=== PATIENT | female | born 1980 | race Caucasian/White ===

== ENCOUNTER → 2018-02-14 | Outpatient (CLI) | payer OTHER ==
[2017-03-25 06:50] VITALS: BMI 44.0
[~2018-02-14] MED LIST: ACE3 PO; AUG875 PO; CEPH250S35 PO; IBU600 PO; IBUP800T37 PO; LOR5/325 PO; MET10 PO; OXYC-865 PO; PREN-127 PO
[2018-02-14 12:44] LABS: PLATELET COUNT, AUTOMATED 238 K/uL (150-450)
== END ==
LOC: LAB 11:03
PROVIDERS: ATTEND Obstetrics & Gynecology
DX: Z34.91 Encounter for supervision of normal pregnancy, unspecified, first trimester (principal)
CPT/HCPCS: 36415; 81001; 84702; 85025; 86592; 86703; 86762; 86787; 86850; 86900; 86901; 87088; 87340

== ENCOUNTER → 2018-02-16 | Outpatient (CLI) | payer OTHER ==
[2017-03-25 06:50] VITALS: BMI 44.0
== END ==
LOC: LAB 10:57
PROVIDERS: ATTEND Obstetrics & Gynecology
DX: Z34.91 Encounter for supervision of normal pregnancy, unspecified, first trimester (principal)
CPT/HCPCS: 36415; 84702

== ENCOUNTER → 2018-05-02 | Outpatient (CLI) | payer OTHER ==
[2017-03-25 06:50] VITALS: BMI 44.0
--- NOTE | 2018-05-03 00:36 | RADIOLOGY IMAGING REPORT ---
[place]AC[place] [facility] [place] NAME: Tammy Roldan : 1980 MR: [id number] V: [id number] EXAM DATE: ORDERING PHYSICIAN: FAHAD PLATA TECHNOLOGIST: Location: [facility] Patient: Tammy Roldan : 1980 Visit/Account:[id number] Date of Sevice: 05/02/2018 [facility] OB ANATOMICAL SURVEY HISTORY: Screening. COMPARISON STUDIES: None. FINDINGS: Intrauterine gestations: One. presentation: Variable. heart rate: Regular at 136 bpm. Amniotic fluid index: 19.0 cm. Largest amniotic fluid pocket 6.7 cm. Placenta: Fundal and posterior without previa. Placental cord insertion is normal. Uterus: Gravid, otherwise normal. Maternal adnexa: Unremarkable. Cervix: 3 cm in length. There is questionable funneling of the upper cervix (images 73 through 80). Gestational Parameters: BPD: 4.6 cm 20 weeks/ 0 days HC: 17.6 cm 20 weeks/ 1 days AC: 15.2 cm 20 weeks/ 3 days FL: 3.0 cm 19 weeks/ 3 days Average ultrasound age (AUA): 20 weeks 0 days Estimated gestational age by LMP of 12/13/2017: 20 weeks 0 days, corresponding to MADAI 09/19/2017. Estimated weight (EFW): 321 grams +/- 47 grams EFW: 41 th percentile based on LMP Anatomic Survey: Intracranial structures, 4-chamber heart, right ventricular outflow tract, aortic arch, stomach, kidn eys, urinary bladder, spine, 3-vessel cord and cord insertion are unremarkable. Two upper and two low er extremities visualized. Normal profile view and normal nose and lips view. gender appears ma le. IMPRESSION: 1. Single live intrauterine gestation; estimated ultrasound age 20 weeks 0 days, corresponding to MADAI 09/19/2017, concordant with the LMP. 2. Normal anatomic survey. 3. Cervix is shortened, measuring 3 cm with questionable funneling of the upper cervix. Report Dictated By: Dayna Lewis at 05/03/2018 12:16 AM Report E-Signed By: Dayna Lewis at 05/03/2018 12:31 AM [id number]
== END ==
LOC: US 10:59
PROVIDERS: ATTEND Obstetrics & Gynecology
DX: Z34.82 Encounter for supervision of other normal pregnancy, second trimester (principal); Z3A.20 20 weeks gestation of pregnancy

== ENCOUNTER → 2018-06-28 | Outpatient (CLI) | payer OTHER ==
[2017-03-25 06:50] VITALS: BMI 44.0
[~2018-06-28] MED LIST changes: +DIPH0.5D12 IM; +PYRI25TA18 PO; +SENN-187 PO
[2018-06-28 12:40] LABS: PLATELET COUNT, AUTOMATED 215 K/uL (150-450)
== END ==
LOC: LAB 11:41
PROVIDERS: ATTEND Obstetrics & Gynecology
DX: O09.529 Supervision of elderly multigravida, unspecified trimester (principal); Z64.1 Problems related to multiparity
CPT/HCPCS: 36415; 82950; 85025

== ENCOUNTER → 2018-07-01 | Outpatient (CLI) | payer OTHER ==
[2017-03-25 06:50] VITALS: BMI 44.0
== END ==
LOC: LAB 08:02
PROVIDERS: ATTEND Obstetrics & Gynecology
DX: O99.810 Abnormal glucose complicating pregnancy (principal)
CPT/HCPCS: 36415; 82951; 82952

== ENCOUNTER → 2018-08-16 | Outpatient (CLI) | payer OTHER ==
[2017-03-25 06:50] VITALS: BMI 44.0
== END ==
LOC: LAB 15:46
PROVIDERS: ATTEND Obstetrics & Gynecology
DX: Z36.85 Encounter for antenatal screening for Streptococcus B (principal)
CPT/HCPCS: 87081

== ENCOUNTER → 2018-08-25 | Outpatient (CLI) | payer OTHER ==
[2017-03-25 06:50] VITALS: BMI 44.0
[~2018-08-25] MED LIST changes: +ACET-1966 PO; +BET6I IM ONLY; +CALC-515 PO; -DIPH0.5D12 IM; +DIPH0.5S2 IM
== END ==
LOC: LAB 11:49
PROVIDERS: ATTEND Obstetrics & Gynecology
DX: O09.93 Supervision of high risk pregnancy, unspecified, third trimester (principal); O13.3 Gestational [pregnancy-induced] hypertension without significant proteinuria, third trimester
CPT/HCPCS: 36415; 82040; 82247; 82310; 82374; 82435; 82565; 82570; 82947; 84075; 84132; 84155; 84156; 84295; 84450; 84460; 84520; 85027

== ENCOUNTER 2018-08-28 07:33 | Inpatient (IN) | payer OTHER ==
[~2018-08-28] VITALS: Ht 139.7 cm; Wt 78.0 kg
[~2018-08-28 07:33] MED LIST changes: -ACET-1966 PO; -CALC-515 PO
[2018-08-28 07:56] VITALS: BP 131/87
[2018-08-28] MEDS ORDERED: OXYTOCIN 30 UNIT/D5LR 500 ML 500 ML IV PRN ×2 (08:06)
[2018-08-28] MEDS ORDERED: FAMOTIDINE(*) 20MG/50ML PREMIX 50 ML IVPB PRN (08:06)
[2018-08-28] MEDS ORDERED: LR(*) 1000 ML BAG 1,000 ML IV PRN (08:06)
[2018-08-28] MEDS ORDERED: LIDOCAINE 1% LOCAL 300 MG/30ML INJ PRN (08:10)
[2018-08-28] MEDS ORDERED: TERBUTALINE SULF 1 MG/ML VIAL SUBQ PRN (08:10)
[2018-08-28] MEDS ORDERED: fentaNYL CITR 100 MCG/2 ML AMP IVP PRN (08:10)
[2018-08-28] MEDS ORDERED: METOCLOPRAMIDE 10 MG/2 ML SDV IVP PRN (08:10)
[2018-08-28] MEDS ORDERED: LIDOCAINE/SOD BICARB 8.4% SYR SC PRN (08:10)
[2018-08-28] MEDS ORDERED: FLUSH 10 ML SYR IVP PRN (08:10)
--- NOTE | 2018-08-28 09:02 | History & Physical ---
History of Present Illness Age of Patient: 37 : 11 Para or TPAL: 8 EDC per LMP: September 19, 2018 EDC per U/S: September 19, 2018 Estimated Gestational Age: 36.6 Chief Complaint "here for induction History of Present Illness Pt is a 37 at 36 6/7 wks dated by presenting for induction of labor for GHTN and abnormal liver functions. Pt had betamethasone on and repeat 24 hours later on Wednesday. Pt denies visual changes but does have a dull frontal headache. States the headache abated after both doses of betamethasone but returned the next day. Denies epigastric pain. Pt reports +FM, no LOF or ble eding and only occasional contractions. Pt is accompanied by her Brenda. History Patient's Blood Type: B Positive Rubella Status: Immune Group B Strep Screen: Negative Obstetrical History: Pt developed GHTN with this and last Wed developed abnormal liver functions. Pt has had GHTN with her last 2 pregnancies and PreE in 2016 without severe features. Pt has had with all her babies and uncomplicated course. Past Medical History: Pt had tonsillectomy at age 11, history of eczema and UTIs frequently as a child. Appendectomy at age 8. Taking vitamins and tylenol. Last dose 2 weeks ago. Allergies: Coded Allergies: No Known Allergies (Verified Allergy, Mild, 08/23/12) Social History: , lives with [facility] and 7 children. present and supportive. No T/E/D. Family History: Mastectomy MGM (DOUBLE MASTECTOMY FOR FIBROUS BREAST TISSUE-NO CANCER), Onset:Unknown Med Rec Home Meds Reported Medications Acetaminophen (TYLENOL) 325 Mg Tablet, 325 MG PO PRN, TAB 08/28/18 Calcium Carbonate (TUMS) 200 Mg Tab.chew, 200 MG PO PRN, TAB.CHEW 08/28/18 Pyridoxine Hcl (VITAMIN B-6) 25 Mg Tablet, 25 MG PO 06/28/18 Sennosides/Docusate Sodium (STOOL SOFTENER TABLET) 1 Each Tablet, 1 EACH PO 06/28/18 Vits W-Ca,Fe,Fa(<1MG) ( VITAMINS) 1 Each Tablet, 1 EACH PO DAILY, TAB 11/07/15 Review of Systems Constitutional: No Fever, No Chills Eyes: No Vision Change Respiratory: No Shortness of Breath Gastrointestinal: No Nausea, No Vomiting, No Diarrhea Genitourinary: No Dysuria Musculoskeletal: No Pain Psychiatric: No Depression Exam General Exam Vital Signs Vital Signs Date Time Temp Pulse Resp B/P (MAP) Pulse Ox O2 Delivery O2 Flow Rate FiO2 08/28/18 10:59 99.7 93 18 131/87 (102) Room Air General Apperance: Alert/Awake/No Acute Distress Neuro: No Headache Cardiovascular: Regular Rate and Rhythm Respiratory: Clear to Auscultation Abdomen: Soft, Non-Tender, Non-Distended, Gravid - Non-Tender Extremities: Warm Psychological: Alert & Oriented X3 Vaginal Discharge/Fluid?: Other (none) Cervical Dialation: 6 Cervical Effacement (%): 75 Cervical Position: Posterior Station: +1 Presentation: Vertex (by SVE and US) Uterine Contractions(Q min): 6 (pt unaware of contractions.) Uterine Contraction Strength: Mild UC Resting Tone: Soft Fetus Feeling Movement?: Yes Estimated Weight(grams): 3000 Heart Tones: 135 Heart Tone Variabilty: Moderate FHT Accelerations: 15X15 FHT Decelerations: None FHT Category: I Medical Decision Making Data Points Result Diagram: 08/28/18 0836 08/28/18 0836 AST 103 ALT 127 Creat 0.6 GBS negative Assessment and Plan OVEN BAKER Assessment: Stable (Category 1 FHT) OVEN BAKER Plan: Routine Labor Care, Routine Labor/Induct Care Problems: (1) Elevated liver enzymes Assessment & Plan: P 1. Repeat Pre E , monitor BP, if >140/ >[address] Lou MD (2) Elective induction of labor planned Status: Resolved Assessment & Plan: P 1. Will start Pitocin at 1 mu/min and increase q 20 min until a regular labor pattern is established 2. Encourage position change 3. Continuously monitor 4. Anticipate (3) Gestational [-induced] hypertension without significant proteinuria, third trimester Status: Resolved Assessment & Plan: P 1. Continue to monitor BP and S/S of PreE (4) Grand multipara in labor in third trimester Status: Resolved (5) Advanced maternal age (AMA) in MAURICIO TOTH CNM Aug 28, 2018 09:02
[2018-08-28 09:07] LABS: PLATELET COUNT, AUTOMATED 261 K/uL (150-450)
[2018-08-28 10:30] VITALS: BP 137/79
[2018-08-28] MEDS ORDERED: ACET-1966 PO (10:56)
[2018-08-28] MEDS ORDERED: CALC-515 PO (10:56)
[2018-08-28 10:59] VITALS: BP 131/87; Ht 139.7 cm; Wt 78.0 kg
--- NOTE | 2018-08-28 15:36 | Labor Progress Note ---
Labor Subjective Progress Notes Feeling Movement?: Yes Vaginal Discharge/Fluid: Clear Fluid (AROM @ 1525) Labor Pain: Moderate Neurological: No Headache Labor Objective Vital Signs Vital Signs Date Time Temp Pulse Resp B/P (MAP) Pulse Ox O2 Delivery O2 Flow Rate FiO2 08/28/18 10:59 99.7 93 18 131/87 (102) Room Air Vaginal Discharge/Fluid?: Clear Fluid Cervical Dialation: 6 Cervical Effacement (%): 75 Cervical Consistency: Moderate Cervical Position: Posterior Station: +1 Presentation: Vertex Uterine Contractions(Q min): 5 Uterine Contraction Strength: Moderate UC Resting Tone: Soft Fetus Heart Tone Variabilty: Moderate FHT Decelerations: None FHT Category: I General Exam General Appearance: Alert/Awake/No Acute Distress, Afebrile Psychological: Alert & Oriented X3 Other Result Diagram: 08/28/18 0836 08/28/1836 Assessment and Plan Problems: (1) Elevated liver enzymes (2) Elective induction of labor planned Status: Resolved Assessment & Plan: A: AROM, clear fluid, active labor P: 1 continue with pitocin if not richard regularly 2. Continuously monitor 3. Anticipate (3) Gestational [-induced] hypertension without significant proteinuria, third trimester Status: Resolved (4) Grand multipara in labor in third trimester Status: Resolved (5) Advanced maternal age (AMA) in MAURICIO TOTH CNM Aug 28, 2018 15:36
[2018-08-28] MEDS ORDERED: MISOPROSTOL 200 MCG TAB ONE (18:11)
--- NOTE | 2018-08-28 18:34 | OB Delivery Note ---
Delivery Note Vaginal Delivery Type: Spont. Vaginal Delivery (Induced ) Delivery Date: Aug 28, 2018 Delivery Time: 17:20 Estimated Gestational Age(wks): 36 6/7 Length of Labor Stage I (hrs): 1 (hour and 55 min) Length of Labor Stage II (hrs): 9 (minutes) Labor Stage III (minutes): 5 Delivery Anesthesia: Other (natural childbirth) Sex: Male Infant Weight (gms): 2866 (6 lbs 5.5 ounces) Apgars: 1 Minute (9), 5 Minute (10) Repair Needed: Other (intact) Estimated Blood Loss: 100 Delivery Complications: Precipitous Notes: Pt presented in the am for induction of labor for at 36 6/7 wks for GHTN and isolated elevated liver enzymes. Initial cervical exam, patient was 6/75/0 station, membranes intact. Pitocin was started at 1 mu/min at 1005 and increased slowly to a max of 7mu/min at time of delivery. Pt asked to be checked at 1525 and was unchanged but had more descent of the vertex. Pt requested AROM, clear fluid, moderate amount. Non foul in odor. Pt progressed rapidly to 7/9/+1. Pt was complete at 1711 and began active pushing efforts. Pt delivered at 1720 SONYA restituted to a OA position. Baby was placed on mothers abdomen with a strong spontaneous cry. Cord clamping delayed x 60 seconds. Cord blood obtained. 3VC noted. Placenta delivered in a [facility] mech appears intact. Perineum inspected intact. EBL 100 cc. Apgars 9/10. Mother and baby are stable at time of note. No uninteded objects were left in vault, 4 X 4 count and laps accounted and correct. Spike Machine Operator in Attendence: Yes (Dr. Aleksandar CLARKE present at time of delivery) Copies to: JEMIMA BLOOD MD ; MAURICIO TOTH CNM Aug 28, 2018 18:34
[2018-08-28 19:15] VITALS: BP 131/70
[2018-08-28] MEDS ORDERED: GLYCERIN/WITCH HAZEL LEAF 1 PK TOP PRN (19:45)
[2018-08-28] MEDS ORDERED: LANOLIN OINT 7 GM TUBE TP PRN (19:45)
[2018-08-28] MEDS ORDERED: ACETAMINOPHEN 325 MG TAB PO PRN (19:45)
[2018-08-28] MEDS ORDERED: HYDROCORTISONE 2.5% CR 30GM TB PR PRN (19:45)
[2018-08-28] MEDS ORDERED: MAGNESIUM HYDROXIDE* 30ML UDCP PO PRN (19:45)
[2018-08-28] MEDS ORDERED: BENZOCAINE 20% 60 ML BTL TP PRN (19:45)
[2018-08-28] MEDS: DOCUSATE CALCIUM 240 MG CAP PO SCH (20:48)
[2018-08-28] MEDS: IBUPROFEN 800 MG TAB PO PRN (20:49)
[2018-08-28 23:10] VITALS: BP 116/72
[2018-08-29 08:38] VITALS: BP 121/77
[2018-08-29] MEDS: IBUPROFEN 800 MG TAB PO PRN ×2 (08:49→17:41)
[2018-08-29] MEDS: DOCUSATE CALCIUM 240 MG CAP PO SCH ×2 (08:49→21:00)
--- NOTE | 2018-08-29 09:40 | OB/GYN Progress Note ---
OB Subjective Progress Notes GI: POS Flatus; NEG Nausea, NEG Vomiting, NEG Bowel Movement : Voiding Well, Vaginal Bleeding, Scant Pain: Mild, Tolerating PO Pain Meds Neurological: No Headache OB Objective Physical Exam Vital Signs Date Time Temp Pulse Resp B/P (MAP) Pulse Ox O2 Delivery O2 Flow Rate FiO2 08/29/18 08:38 98.3 85 18 121/77 (92) Room Air Intake and Output 08/29/18 07:00 Intake Total 1200 ml Output Total 710 ml Balance 490 ml Intake IV Total 1200 ml Output Urine Total 710 ml # Voids 5 General Appearance: Alert/Awake/No Acute Distress, Afebrile Cardiovascular: Normal Rhythm & Peripheral Pulses (Breasts soft, nipples intact. ) Respiratory: Clear to Auscultation Abdomen: Fundus Firm, Non-Tender Extremities: Warm Psychological: Alert & Oriented X3 Result Diagram: 08/29/18 0610 08/29/18 0610 Reviewed, LFTs trending down. Assessment and Plan Problems: (1) Elevated liver enzymes Assessment & Plan: LFTs improving. (2) Elective induction of labor planned Status: Resolved (3) Gestational [-induced] hypertension without significant proteinuria, third trimester Status: Resolved Assessment & Plan: Normotensive (4) Grand multipara in labor in third trimester Status: Resolved (5) Advanced maternal age (AMA) in (6) care following vaginal delivery Status: Acute Assessment & Plan: A: Normal PP involution P: 1. Continue to monitor vital signs 2. Working on feeding and pumping 3. Plan to DC tomorrow. MAURICIO TOTH CNM Aug 29, 2018 09:40
[2018-08-29 11:45] VITALS: BP 107/66
[2018-08-29 16:00] VITALS: BP 108/58
[2018-08-29 20:00] VITALS: BP 119/76
[2018-08-30 05:00] VITALS: BP 115/83
[2018-08-30 07:40] VITALS: BP 107/77
[2018-08-30] MEDS: DOCUSATE CALCIUM 240 MG CAP PO SCH (09:11)
--- NOTE | 2018-08-30 09:30 | OB/GYN Progress Note ---
OB Subjective Progress Notes Subjective Doing well. Pain controlled with oral medications. Tolerating regular diet. Ambulating. Voiding. Normal lochia. No preeclampsia symptoms. OB Objective Physical Exam Vital Signs Date Time Temp Pulse Resp B/P (MAP) Pulse Ox O2 Delivery O2 Flow Rate FiO2 08/30/18 05:00 97.3 74 18 115/83 (94) 97 Room Air Intake and Output 08/30/18 07:00 Intake Total 200 ml Balance 200 ml Intake Oral 200 ml General Appearance: Alert/Awake/No Acute Distress, Afebrile Eyes: Normal Extraocular Movement & Vison Cardiovascular: Normal Rhythm & Peripheral Pulses, Regular Rate and Rhythm Respiratory: No Respiratory Distress, Clear to Auscultation Abdomen: Soft, Non-Tender, Non-Distended, Fundus Firm Extremities: No Cyanosis,Clubbing or Edema Integumentary: Skin Intact without Lesions or Rash Psychological: Alert & Oriented X3, Appropriate Mood & Affect Result Diagram: 08/29/1810 08/29/1810 Assessment and Plan Problems: (1) care following vaginal delivery Status: Acute Assessment & Plan: PPD#2 s/p . Meeting milestones. Desires discharge to home today. Discussed routine expectations. Questions answered. Follow up in clinic in 6wks for check. (2) Gestational [-induced] hypertension without significant proteinuria, third trimester Status: Resolved Assessment & Plan: BP stable. Will monitor BP after discharge and call for pre eclampsia symptoms. (3) Elevated liver enzymes Assessment & Plan: Transaminases improved PPD#1. Will plan to repeat at 6wks or sooner as needed. FAHAD PLATA MD Aug 30, 2018 09:30
--- NOTE | 2018-08-30 09:33 | OB/GYN Discharge Summary ---
Discharge Summary Reason for Hosp/Final Diag: (1) care following vaginal delivery Status: Acute Hospital Course & Plan: PPD#2 s/p . Meeting milestones. Desires discharge to home today. Discussed routine expectations. Questions answered. Follow up in clinic in 6wks for check. (2) Gestational [-induced] hypertension without significant proteinuri a, third trimester Status: Resolved Hospital Course & Plan: BP stable. Will monitor BP after discharge and call for preeclampsia symptoms. (3) Elevated liver enzymes Hospital Course & Plan: Transaminases improved PPD#1. Will plan to repeat at 6wks or sooner as needed. Lates Vital Signs Vital Signs Date Time Temp Pulse Resp B/P (MAP) Pulse Ox O2 Delivery O2 Flow Rate FiO2 08/30/18 05:00 97.3 74 18 115/83 (94) 97 Room Air Weight (Pounds): 172 Result Diagram: 08/29/1860908/29/18609 Condition: Improved Discharge: Home, Self Halfway Meds Reported Medications Acetaminophen (TYLENOL) 325 Mg Tablet, 325 MG PO PRN, TAB 08/28/18 Calcium Carbonate (TUMS) 200 Mg Tab.chew, 200 MG PO PRN, TAB.CHEW 08/28/18 Pyridoxine Hcl (VITAMIN B-6) 25 Mg Tablet, 25 MG PO 06/28/18 Sennosides/Docusate Sodium (STOOL SOFTENER TABLET) 1 Each Tablet, 1 EACH PO 06/28/18 Vits W-Ca,Fe,Fa(<1MG) ( VITAMINS) 1 Each Tablet, 1 EACH PO DAILY, TAB 11/07/15 Follow up Referrals: INSTALLATION HELPER - In 6 Weeks @ [facility] [place] with FAHAD PLATA MD Discharge Diet: As Tolerates Discharge Activity: Pelvic Rest FAHAD PLATA MD Aug 30, 2018 09:33
== END 2018-08-30 15:15 | disposition home or self-care (01) | DRG 807 ==
LOC: OB 07:33
PROVIDERS: ADMIT Obstetrics & Gynecology; ATTEND Obstetrics & Gynecology
PROC: 10E0XZZ Delivery of Products of Conception, External Approach (ICD-10-PCS; principal; 2018-08-28)
PROC: 10907ZC Drainage of Amniotic Fluid, Therapeutic from Products of Conception, Via Natural or Artificial Opening (ICD-10-PCS; 2018-08-28)
DX: O13.4 Gestational [pregnancy-induced] hypertension without significant proteinuria, complicating childbirth (principal); Z37.0 Single live birth; O62.3 Precipitate labor; R94.5 Abnormal results of liver function studies; Z3A.36 36 weeks gestation of pregnancy
CPT/HCPCS: 36415; 82040; 82247; 82310; 82374; 82435; 82565; 82570; 82947; 83615; 84075; 84132; 84155; 84156; 84295; 84450; 84460; 84520; 84550; 85025; 85027; 86703; 86850; 86900; 86901; J2590; J7120

== ENCOUNTER → 2018-10-11 | Outpatient (CLI) | payer OTHER ==
[2018-08-28 10:59] VITALS: BMI 40.0
[~2018-10-11] MED LIST changes: +ACET-1966 PO; +CALC-515 PO
== END ==
LOC: LAB 11:36
PROVIDERS: ATTEND Obstetrics & Gynecology
DX: Z39.2 Encounter for routine postpartum follow-up (principal); R74.8 Abnormal levels of other serum enzymes
CPT/HCPCS: 36415; 82040; 82247; 82310; 82374; 82435; 82565; 82947; 84075; 84132; 84155; 84295; 84450; 84460; 84520